=== PATIENT | male | born 1985 | race Two or more races ===

== ENCOUNTER 2017-12-04 10:37 | Emergency (ER) | payer OTHER ==
[~2017-12-04] VITALS: Ht 167.6 cm; Wt 97.5 kg
[2017-12-04 10:44] VITALS: BP 126/80
[2017-12-04] MEDS ORDERED: IBUPROFEN 600 MG TABLET PO ONE ×2 (11:20→11:30)
== END 2017-12-04 13:21 | disposition home or self-care (01) ==
LOC: ER 10:38
DX: J11.00 Influenza due to unidentified influenza virus with unspecified type of pneumonia (principal); I10 Essential (primary) hypertension; F17.200 Nicotine dependence, unspecified, uncomplicated
CPT/HCPCS: 71046; 99284; 99406; A4606; Z7610